=== PATIENT | female | born 1980 | race Caucasian/White ===

== ENCOUNTER 2018-08-25 11:13 | Emergency (ER) | payer OTHER, SELFPAY ==
[2018-08-25 11:21] VITALS: BMI 23.0
[2018-08-25 11:58] LABS: Basophils % 0.5 % (0.1-2.0); Eosinophils # 0.1 K/mm3 (0.0-0.4); Eosinophils % 1.6 % (0.1-12.0); Hematocrit 40.7 % (37.0-47.0); Hemoglobin 13.8 g/dL (12.2-16.2); Lymphocytes # 1.9 K/mm3 (0.7-4.5); Lymphocytes % 34.8 % (10-50); Mean Corpuscular Hemoglobin 30.4 pg (27.0-31.2); Mean Corpuscular Volume 89.3 fl (81-99); Mean Platelet Volume 7.5 fl (7.4-10.4); Monocytes # 0.4 K/mm3 (0.1-1.0); Neutrophils # 3.1 K/mm3 (1.8-7.8); Neutrophils % 56.1 % (37.0-80.0); Platelet Count 350 K/mm3 (142-424); Red Blood Count 4.56 M/mm3 (4.20-5.40); Red Cell Distribution Width 12.4 % (11.5-17.5); White Blood Count 5.5 K/mm3 (4.8-10.8)
[2018-08-25 12:05] LABS: Activated Partial Thrombo Time 28.5 seconds (23.6-34.0); INR 1.01 (0.9-1.1); Prothrombin Time 10.4 seconds (9.4-11.8)
[2018-08-25 12:07] LABS: Alanine Aminotransferase 25 U/L (12-78); Albumin Level 4.5 gm/dL (3.4-5.0); Alkaline Phosphatase 63 U/L (46-116); Aspartate Amino Transferase 13 U/L (15-37); Bilirubin,Direct 0.1 mg/dL (0.0-0.2); Bilirubin,Indirect 0.3 mg/dL (0.0-0.9); Bilirubin,Total 0.4 mg/dL (0.2-1.0); Total Protein,Serum 8.6 gm/dL (6.4-8.2)
[2018-08-25 12:16] LABS: HIV AB(1/2) Exposures Non-Reactive (Non-Reactiv)
[2018-08-25 13:05] VITALS: BP 126/66; PULSE 62; RESP 18; TEMP 36.6; O2SAT 100
[2018-08-26 08:12] LABS: HIV Screen 4th Generation wRfx Non Reactive (Non Reactive)
[2018-08-26 14:42] LABS: Hepatitis B Surf Ab Quant 65.5 mIU/mL (Immunity>9.9); Hepatitis B Surface Antigen Negative (Negative); Hepatitis C Antibody <0.1 s/co ratio (0.0-0.9)
== END 2018-08-25 13:06 | disposition home or self-care (01) ==
LOC: ER 11:22
PROVIDERS: Emergency Provider Emergency Medicine; PCP Nurse Practitioner Family
DX: S81.032A Puncture wound without foreign body, left knee, initial encounter (principal); W45.8XXA Other foreign body or object entering through skin, initial encounter; Y92.69 Other specified industrial and construction area as the place of occurrence of the external cause; Y99.0 Civilian activity done for income or pay
CPT/HCPCS: 80076; 85025; 85610; 85730; 86703; 86706; 87340; 87380; G0432

== ENCOUNTER → 2020-01-23 09:52 | Outpatient (CLI) | payer OTHER, SELFPAY ==
--- NOTE | 2020-01-23 10:02 | XR_ITS ---
PROCEDURE: XR WRIST LT MIN 3V CLINICAL INDICATION: CTS Pain COMPARISON: None FINDINGS: No fracture or dislocation. No lytic or blastic change. There is normal mineralization. The joint spaces are well-preserved. No significant degenerative/arthritic changes. No erosive changes evident. Other findings:None. IMPRESSION: No acute findings. Dictated by: Ricardo Molina MD 01/23/2020 11:50 Ricardo Molina MD in [place] 01/23/2020 11:50
--- NOTE | 2020-01-23 10:02 | XR_ITS ---
PROCEDURE: XR WRIST RT MIN 3V CLINICAL INDICATION: cts Pain, COMPARISON: No exams were available for comparison FINDINGS: No fracture or dislocation. No lytic or blastic change. There is normal mineralization. The joint spaces are well-preserved. No significant degenerative/arthritic changes. No erosive changes evident. Other findings:None. IMPRESSION: Negative right wrist Dictated by: Ricardo Molina MD 01/23/2020 11:53 Ricardo Molina MD in [place] 01/23/2020 11:53
== END ==
PROVIDERS: PCP Nurse Practitioner Family; Visit Provider Orthopaedic Surgery
DX: G56.02 Carpal tunnel syndrome, left upper limb (principal); G56.01 Carpal tunnel syndrome, right upper limb
CPT/HCPCS: 73110

== ENCOUNTER → 2021-05-06 12:05 | Outpatient (CLI) | payer BC, SELFPAY ==
--- NOTE | 2021-05-06 12:12 | XR_ITS ---
FINAL REPORT CLINICAL HISTORY: COUGH-neg covid COMPARISON: May 20, 2016 FINDINGS: Two views of the chest were obtained. The heart size and pulmonary vascularity are within normal limits. The mediastinum is normal. No acute pulmonary abnormality is identified. There is no pneumothorax. The bony thorax is intact. IMPRESSION: No active cardiopulmonary disease. Reviewed, Interpreted and Dictated by Vazquez Banks III, MD Transcribed by Boom Mayen Authenticated by Vazquez Banks III, MD on 05/06/2021 01:49:23 PM [facility]
== END ==
PROVIDERS: PCP Nurse Practitioner Family; Visit Provider Nurse Practitioner Family
DX: R05.9 Cough, unspecified (principal)
CPT/HCPCS: 71046

== ENCOUNTER → 2021-05-22 08:36 | Outpatient (CLI) | payer BC, SELFPAY ==
[2021-05-23 13:32] LABS: Covid-19 Nasal PCR Sendout Lex NOT DETECTED
== END ==
PROVIDERS: Visit Provider Nurse Practitioner
DX: Z20.822 Contact with and (suspected) exposure to COVID-19 (principal)
CPT/HCPCS: C9803; U0004; U0005